=== PATIENT | male | born 1955 | race Asian ===

== ENCOUNTER → 2020-10-18 07:56 | Outpatient (CLI) | payer OTHER, SELFPAY ==
--- NOTE | 2020-10-18 | DI.RAD.S_ITS ---
PROCEDURE: XR LUMBAR SPINE 2-3V INDICATIONS: BACK PAIN TECHNIQUE: 3 views of the lumbar spine were acquired. COMPARISON: None. FINDINGS: Bones: 5 [id number] vertebrae are present. There is normal bony alignment. No vertebral body compression fractures. No suspicious bony lesions. Mild degenerative disc disease is present along the lumbosacral spine and facet osteoarthritis becomes progressively more prominent from mild to moderate from L3 through S1. Soft tissues: Overlying bowel gas pattern is normal. No suspicious soft tissue calcifications. IMPRESSION: [id number] degenerative changes overall, no fracture or evidence of ligamentous laxity is seen. The dominant abnormality present is facet osteoarthritis that becomes progressively more prominent from L3 through S1 and is moderate at the L5-S1 level. Dictated by: Jordi Villagran M.D. on 10/18/2020 at 8:56 Approved by: Jordi Villagran M.D. on 10/18/2020 at 8:57
--- NOTE | 2020-10-18 | DI.US.S_ITS ---
PROCEDURE: US ABD AORTA ANEURYSM SCREEN INDICATIONS: ABDOMINAL AORTIC ANEURYSM SCREENING TECHNIQUE: Real time scanning was performed of the aorta and iliac arteries, with image documentation. COMPARISON: None. FINDINGS: Aorta: Proximal aortic diameter measures 2.7 cm. Mid-aorta measures 1.6 cm. Distal aortic diameter is 1.4 cm. Iliac arteries: Right common iliac artery measures 0.9 cm. Left common iliac artery measures 1.2 cm. IMPRESSION: No aneurysm found. Dictated by: Jordi Villagran M.D. on 10/18/2020 at 9:53 Approved by: Jordi Villagran M.D. on 10/18/2020 at 9:56
== END ==
PROVIDERS: PCP Family Medicine; Referring Provider Family Medicine; Visit Provider Family Medicine
DX: Z13.6 Encounter for screening for cardiovascular disorders (principal); M47.896 Other spondylosis, lumbar region; M51.36 Other intervertebral disc degeneration, lumbar region
CPT/HCPCS: 72100; 76706

== ENCOUNTER → 2021-06-24 10:25 | Outpatient (CLI) | payer OTHER, SELFPAY ==
--- NOTE | 2021-06-24 | DI.RAD.S_ITS ---
PROCEDURE: XR CHEST 2V INDICATIONS: Chronic cough TECHNIQUE: 2 views of the chest were acquired. COMPARISON: None. FINDINGS: Surgical changes and devices: None. Lungs and pleura: Minimal interstitial prominence. No consolidation. No pleural effusions or pneumothorax. Mediastinum: Mediastinal contours are normal. Heart size is normal. Bones and chest wall: No suspicious bony abnormalities. Soft tissues appear unremarkable. IMPRESSION: Minimal interstitial prominence. This could be seen in interstitial lung disease or pulmonary vasculature engorgement. Consider high-resolution chest cc in this patient with chronic cough. Dictated by: Rogelio Adams M.D. on 06/24/2021 at 11:41 Approved by: Rogelio Adams M.D. on 06/24/2021 at 11:44
== END ==
PROVIDERS: PCP Family Medicine; Referring Provider Family Medicine; Visit Provider Family Medicine
DX: R05.3 Chronic cough (principal)
CPT/HCPCS: 71046

== ENCOUNTER → 2021-07-18 07:00 | Outpatient (CLI) | payer OTHER, SELFPAY ==
[2021-07-18 07:42] LABS: COVID19 -Nasal RAPID Negative (Negative)
== END ==
PROVIDERS: PCP Family Medicine; Referring Provider Internal Medicine; Visit Provider Internal Medicine
DX: Z20.822 Contact with and (suspected) exposure to COVID-19 (principal)
CPT/HCPCS: 87635; C9803

== ENCOUNTER → 2021-07-18 07:02 | Outpatient (CLI) | payer OTHER, SELFPAY ==
--- NOTE | 2021-07-23 11:41 | PM.PFT.1 ---
Pulmonary Function Test Referral & Results Date Patient Seen: 07/18/21 Requesting provider: Patti Garber Indication: COPD, interstitial lung disease Results: The spirometry demonstrates an FVC of 2.22 L which is 64% of predicted. The FEV1 was measured at 1.82 L which is 71% of predicted. The FEV1/FVC ratio was 82 which is 110% of predicted. Following the administration of bronchodilator there was at 13% improvement in FEF 25-75% Lung volumes show an SVC of 2.24 L which is 62% of predicted. The diffusing capacity was measured at 21.53 which is 93% of predicted. The maximum voluntary ventilation was reduced Interpretation: This study demonstrates mild reduction FEV1 which suggests mild obstructive lung disease although FEV1/FVC ratio is preserved. Lung volumes are reduced suggesting moderate restrictive lung disease which may well explain the abnormality in FEV1 above Diffusing capacity is normal
== END ==
PROVIDERS: PCP Family Medicine; Referring Provider Family Medicine; Visit Provider Family Medicine
DX: J44.9 Chronic obstructive pulmonary disease, unspecified (principal); J84.9 Interstitial pulmonary disease, unspecified; Z87.891 Personal history of nicotine dependence; Z20.822 Contact with and (suspected) exposure to COVID-19; R05.3 Chronic cough
CPT/HCPCS: 87635; 94060; 94726; 94729; C9803

== ENCOUNTER → 2021-07-22 11:18 | Outpatient (CLI) | payer OTHER, SELFPAY ==
--- NOTE | 2021-07-22 | DI.CT.S_ITS ---
PROCEDURE: CT CHEST HIGH RESOLUTION INDICATIONS: INTERSTITIAL LUNG DISEASE, COPD,COUGH TECHNIQUE: Noncontrast 1.0 and 5.0 mm thick contiguous axial sections from the pulmonary apex to the posterior costophrenic angles, with 7 mm thick coronal and sagittal MIP reformats. 1 mm thick dynamic expiratory images acquired through the upper, mid, and lower lungs. 1.0 mm thick axial sections acquired from the rui to the posterior costophrenic angles in the prone end-inspiration position. For radiation dose reduction, the following was used: automated exposure control, adjustment of mA and/or kV according to patient size. COMPARISON: None. FINDINGS: Image quality: Excellent. Lungs: No acute airspace opacities. Mild platelike atelectasis or scar is present in the lingular base. No interlobular septal thickening or pulmonary nodules. No air trapping on expiratory views. Mild diffuse bronchial wall thickening is present within the lower lobes bilaterally. No honeycombing. No tree-in-bud radiopacities or centrilobular nodules. No ground-glass radiopacities. No airspace consolidation. Pleura: No pleural effusions or pneumothorax. Mediastinum: Heart size is normal. No pericardial effusion. Thoracic aorta and central pulmonary arteries are normal in size. Scattered atheromatous calcifications are present within the aortic arch. Esophagus is normal in caliber. Bones and chest wall: No suspicious bony lesions. No vertebral body compression fractures. Abdomen: Visualized upper abdominal solid organs and bowel loops appear normal. IMPRESSION: 1. Mild bronchial wall thickening at the lung bases suspicious for postinflammatory residua or reactive airways disease. 2. No discrete findings to suggest interstitial lung disease. 3. No air trapping or fibrotic changes. Dictated by: Sandra Balbuena M.D. on 07/22/2021 at 14:56 Approved by: Sandra Balbuena M.D. on 07/22/2021 at 15:01
== END ==
PROVIDERS: PCP Family Medicine; Referring Provider Family Medicine; Visit Provider Family Medicine
DX: J84.9 Interstitial pulmonary disease, unspecified (principal); R05.1 Acute cough; J44.9 Chronic obstructive pulmonary disease, unspecified
CPT/HCPCS: 71250

== ENCOUNTER → 2021-08-29 09:48 | Outpatient (CLI) | payer OTHER, SELFPAY ==
--- NOTE | 2021-08-29 | DI.CT.S_ITS ---
PROCEDURE: CT SINUS SCREEN WO CON INDICATIONS: Chronic cough TECHNIQUE: Noncontrast 3.0 mm axial images acquired from the frontal sinuses to the mid-sella, with coronal and sagittal reformats. For radiation dose reduction, the following was used: automated exposure control, adjustment of mA and/or kV according to patient size. COMPARISON: None. FINDINGS: Image quality: Excellent. Sinuses: No areas of mucosal thickening, fluid level, mucous retention cysts versus polyps. Ostiomeatal Complexes: Ostiomeatal complexes are patent. Miscellaneous: Visualized intra-orbital contents are normal. No humble bullosa or paradoxical turbinate curvature. No nasal septal deviation. IMPRESSION: Sinuses are clear. Ostiomeatal complexes are widely patent. Dictated by: Maye Cleveland M.D. on 08/29/2021 at 10:39 Approved by: Maye Cleveland M.D. on 08/29/2021 at 10:41
== END ==
PROVIDERS: PCP Family Medicine; Referring Provider Family Medicine; Visit Provider Family Medicine
DX: R05.3 Chronic cough (principal)
CPT/HCPCS: 70486

== ENCOUNTER → 2021-11-06 10:58 | Outpatient (CLI) | payer OTHER, SELFPAY ==
--- NOTE | 2021-11-06 | DI.RAD.S_ITS ---
PROCEDURE: XR KNEE RT 3V INDICATIONS: Pain in right knee TECHNIQUE: 3 views of the knee were acquired. COMPARISON: None. FINDINGS: Bones: No fractures or dislocations. No suspicious bony lesions. Prominent patellar spur is present. Moderate medial and patellofemoral as well as mild lateral arthritic narrowing. No erosions. Soft tissues: Moderate joint effusion. No suspicious soft tissue calcifications. IMPRESSION: Arthritic changes as above. No visualized acute fracture or dislocation. However, if clinical concern and/or pain persist, short interval imaging followup in 7-10 days is recommended, as occult injury cannot be definitively excluded. Dictated by: Maye Cleveland M.D. on 11/06/2021 at 13:18 Approved by: Maye Cleveland M.D. on 11/06/2021 at 13:20
== END ==
PROVIDERS: PCP Family Medicine; Referring Provider Family Medicine; Visit Provider Family Medicine
DX: M25.561 Pain in right knee (principal); M25.461 Effusion, right knee
CPT/HCPCS: 73562

== ENCOUNTER → 2023-03-22 09:07 | Outpatient (CLI) | payer OTHER, SELFPAY ==
--- NOTE | 2023-03-22 | DI.CT.S_ITS ---
PROCEDURE: CT LUNG LOW DOSE SCREENING INDICATIONS: Tobacco use TECHNIQUE: Noncontrast 2.0-2.5 mm thick sections acquired from the pulmonary apices to the posterior costophrenic angles. 7 mm thick axial MIP, and 5 mm coronal and sagittal reformats were then acquired. A low radiation dose technique was utilized. COMPARISON: [facility], CT, CT CHEST HIGH RESOLUTION, 07/22/2021, 11:28. FINDINGS: Image quality: Diagnostic, given the low radiation dose technique. Lungs and pleura: Mild bibasilar atelectasis. No focal consolidation. No suspicious pulmonary nodules or masses. No septal thickening or nodularity. No pneumothorax or pleural effusion. Mediastinum: Heart size is normal. No pericardial effusion. Coronary atherosclerotic vascular calcifications are noted. No mediastinal adenopathy by size criteria. Thoracic aorta and central pulmonary arteries are normal in size. Atherosclerotic calcifications of the aortic arch are present. Esophagus is normal in caliber. No hiatal hernia. Bones and chest wall: No suspicious bony lesions. No acute vertebral body compression fractures. No axillary or supraclavicular adenopathy by size criteria. Thyroid gland is unremarkable. Abdomen: Visualized upper abdomen solid organs and bowel loops appear normal in the absence of contrast. IMPRESSION: CT chest without acute cardiopulmonary abnormalities. No suspicious pulmonary nodules or masses. LUNG-RADS 1; recommend continued annual lung cancer screening with low dose chest CT, as long as the patient meets the published criteria. Dictated by: David Landin M.D. on 03/22/2023 at 17:32 Approved by: David Landin M.D. on 03/22/2023 at 17:36
== END ==
PROVIDERS: PCP Family Medicine; Referring Provider Family Medicine; Visit Provider Family Medicine
DX: Z12.2 Encounter for screening for malignant neoplasm of respiratory organs; F17.210 Nicotine dependence, cigarettes, uncomplicated
CPT/HCPCS: 71271

== ENCOUNTER 2023-07-29 07:48 | Day surgery (SDC) | payer OTHER, SELFPAY ==
--- NOTE | 2023-07-29 | PATH_ITS ---
[facility] Accession Number: [id number] No. of containers..02 Tissue . 01 Material submitted: . PART A: sigmoid colon - SIGMOID POLYP PART B: colon - RECTAL POLYP . 01 Diagnosis: Part A: SIGMOID POLYP: Tubular adenoma. . Part B: RECTAL POLYP: Colonic mucosa with benign lymphoid aggregate. No neoplasm identified. [facility] 08/03/2023 1350 Local . 01 Electronically signed: . Ernie Reyna MD, Pathologist NPI- [id number] . 01 Gross description: . A. Received in formalin labeled with the patient's name, , and sigmoid polyp, and consists of a single nettles soft tissue fragment measuring 1.5 x 0.6 x 0.1 cm, bisected, and submitted entirely in cassette A1. B. Received in formalin labeled with the patient's name, , and rectal polyp, and consists of a single nettles soft tissue fragment measuring 0.5 cm in greatest dimension. Submitted entirely in cassette B1. ([id number]) /[facility] 08/03/2023 1350 Local . 01 Pathologist provided ICD-10: D12.5, K63.89 . 01 CPT . 555645, 714013 Specimen Comment: A courtesy copy of this report has been sent to [phone] Performed at: 01 [facility] [address] [place] [address] [id number] MD Ernie Reyna MD Phone: [phone]
[2023-07-29 08:33] VITALS: BP 139/81; PULSE 74; RESP 16; TEMP 36.4; O2SAT 100
[2023-07-29] MEDS: LACTATED RINGERS 1,000 ML 42 ML IV (09:05)
--- NOTE | 2023-07-29 09:10 | P.HP_ITS ---
History of Present Illness History of Present Illness Date Patient Seen: 07/29/23 Time Patient Seen: 09:10 Chief complaint: Screening Colonoscopy Narrative: Landon is a 67-year-old man here for colonoscopy. His last 1 was 10 years ago and he had 2 polyps removed. No known family history of colon cancer. [facility] Social History Smoking Status: Former smoker alcohol intake: never Meds Home Medications and Allergies Home Medications Medication Instructions Recorded Confirmed Type felodipine 10 mg tablet,extended 10 mg PO DAILY blood pressure 07/28/23 07/29/23 History release 24 hr losartan 100 mg tablet 100 mg PO DAILY 07/28/23 07/29/23 History metformin 500 mg tablet See Rx Instructions .Route .COMPLEX 07/28/23 07/29/23 History rosuvastatin 10 mg tablet 10 mg PO DAILY 07/28/23 07/29/23 History aspirin 81 mg PO DAILY 07/29/23 07/29/23 History Allergies Allergy/AdvReac Type Severity Reaction Status Date / Time No Known Drug Allergies Allergy Verified 07/29/23 08:28 Exam Vital Signs (past 8 hours): - 07/29/23 08:33 Temperature 97.6 F Pulse Rate 74 Respiratory Rate 16 Blood Pressure 139/81 Pulse Oximetry 100 Oxygen Delivery Method Room Air Oxygen Delivery Method Room Air Const General: No acute distress Resp Effort & Inspection: normal respiratory effort Assessment & Plan Assessment and plan (1) Colon cancer screening: Status: Acute Plan We reviewed the risks and benefits of colonoscopy for colon cancer screening and he would like to proceed.
--- NOTE | 2023-07-29 10:11 | P.OP.COLON_ITS ---
Operative Date/Time/Diagnoses Date of procedure: 07/29/23 Time of procedure: 10:11 Pre-op diagnosis: Colon cancer screening Post-op diagnosis: same Procedure & Clinicians Study performed: Colonoscopy Same procedure as scheduled: Yes Surgeon: Alin Fairbanks Procedure Notes Procedure in detail: Surgeon: Alin Fairbanks MD Anesthesia: Myrna Carrillo D.O. Procedure: The patient was brought to the endoscopy suite, placed in left lateral decubitus position. The patient was connected to monitoring devices. A time-out was performed. Sedation was administered. Once the patient was adequately sedated, a digital rectal exam was performed and extensive external hemorrhoids were noted. The scope was then inserted and advanced to the cecum where the appendiceal orifice was identified and photographed. The terminal ileum was intubated and no abnormalities were seen. The scope was then slowly withdrawn over greater than 6 minutes. There was right colon diverticulosis. The mucosa was thoroughly inspected. There was 5 mm polyp in the sigmoid colon removed with a cold snare. There was a 5 mm polyp in the rectum cold snare. The scope was retroflexed in the rectum. Internal hemorrhoids were noted. The scope was straightened and removed. The patient was awakened and brought to [facility]. Scope withdrawal time: 10 minutes Sedation time: 13 minutes EBL: 5 mL Findings: Right colon diverticulosis, small sigmoid polyp, small rectal polyp and internal and external hemorrhoids Post-procedure Disposition: PACU
[2023-07-29 10:15] VITALS: BP 95/64; PULSE 74; RESP 14; TEMP 36.9; O2SAT 97
[2023-07-29 10:20] VITALS: BP 110/79; PULSE 78; RESP 16; O2SAT 99
[2023-07-29 10:25] VITALS: BP 110/79; PULSE 74; RESP 16; O2SAT 99
[2023-07-29 10:30] VITALS: BP 121/84; PULSE 85; RESP 16; O2SAT 99
== END 2023-07-29 11:10 | disposition home or self-care (01) ==
PROVIDERS: PCP Family Medicine; Referring Provider Surgery; Visit Provider Surgery
PROC: 0DJD8ZZ Inspection of Lower Intestinal Tract, Via Natural or Artificial Opening Endoscopic (ICD-10-PCS; CPT 45378; principal; 2023-07-29 08:45)
DX: Z12.11 Encounter for screening for malignant neoplasm of colon (principal); K57.30 Diverticulosis of large intestine without perforation or abscess without bleeding; K64.8 Other hemorrhoids; D12.5 Benign neoplasm of sigmoid colon
CPT/HCPCS: 45385; 93005; 93010; J2704

== ENCOUNTER → 2024-11-01 07:55 | Outpatient (CLI) | payer OTHER, SELFPAY ==
--- NOTE | 2024-11-01 | DI.CT.S_ITS ---
P the the the the ROCEDURE: CT LUNG LOW DOSE SCREENING INDICATIONS: LUNG SCREENING / TOBACCO ABUSE TECHNIQUE: Noncontrast 2.0-2.5 mm thick sections acquired from the pulmonary apices to the posterior costophrenic angles. 7 mm thick axial MIP, and 5 mm coronal and sagittal reformats were then acquired. For radiation dose reduction, the following was used: automated exposure control, adjustment of mA and/or kV according to patient size. COMPARISON: [facility], CT, CT LUNG LOW DOSE SCREENING, 03/22/2023, 9:13. FINDINGS: Image quality: Diagnostic. Lower Neck: No enlarged lymph nodes. Thyroid: No thyroid nodules which require sonographic follow up, per consensus guidelines. Axillae: No enlarged lymph nodes. Chest Wall: Unremarkable. Bones: No acute vertebral body compression fractures. Mild multilevel spondylitic changes throughout the imaged spine. No suspicious osseous lesions. Lungs and Pleura: No pneumothorax or pleural effusions. No consolidation or suspicious nodules. No new suspicious or enlarging pulmonary nodules. Heart: Heart size is normal. No pericardial effusion. Coronary atherosclerotic vascular calcifications are noted. Thoracic Vessels: The aorta and pulmonary arteries demonstrate normal size. Atherosclerotic calcifications of the aortic arch are present. Mediastinum and Caitlin: No enlarged lymph nodes. Esophagus: No wall thickening. No hiatal hernia. Upper Abdomen: Stable left hepatic lobe hypodensity. Other visualized upper abdomen solid organs and bowel loops appear unremarkable. IMPRESSION: No suspicious pulmonary nodules. LUNG-RADS 1; continued annual screening, if eligible. Clinically Significant Non-pulmonary Findings: Coronary atherosclerosis. Dictated by: David Landin M.D. on 11/01/2024 at 13:43 Approved by: David Landin M.D. on 11/01/2024 at 13:46
== END ==
LOC: CT 07:56
PROVIDERS: PCP Family Medicine; Referring Provider Family Medicine; Visit Provider Family Medicine
DX: F17.210 Nicotine dependence, cigarettes, uncomplicated (principal); I25.10 Atherosclerotic heart disease of native coronary artery without angina pectoris; I70.0 Atherosclerosis of aorta
CPT/HCPCS: 71271